=== PATIENT | female | born 1980 | race Caucasian/White ===

== ENCOUNTER 2017-02-13 10:57 | Emergency (ER) | payer BC ==
[2017-02-13 11:53] VITALS: BP 140/81
--- NOTE | 2017-02-13 12:32 | UC ---
Abdominal Pain Female HPI - HPI Summary HPI Summary: acute onset of vomiting and diarrhea that now has resolved..Hx of abscess in right groin s/p lymph node biopsy--Is concerned that this is happening now as the last time she got on abscess it started the same way....Patient does state sx have resolved now and does not feel feverish and has no pain or swelling in right groin - History of Current Complaint Chief Complaint: UCGI Stated Complaint: VOMITING Time Seen by Provider: 02/13/17 12:11 Hx Obtained From: Patient ?: No Onset/Duration: Sudden Onset, Lasting Days - 1, Resolved Severity Initially: Moderate Severity Currently: None Location: Diffuse Radiates: No Character: Cramping Aggravating Factor(s): Nothing Alleviating Factor(s): Nothing Associated Signs and Symptoms: Positive: Nausea, Vomiting, Diarrhea Allergies/Adverse Reactions: Allergies Allergy/AdvReac Type Severity Reaction Status Date / Time Acetaminophen [From Vicodin] Allergy Rash Verified 02/13/17 11:54 Cephalexin [From Keflex] Allergy Rash Verified 02/13/17 11:54 Hydrocodone [From Vicodin] Allergy Rash Verified 02/13/17 11:54 Vancomycin Allergy Rash Verified 02/13/17 11:54 Home Medications: Home Medications Sulfamethox/Trimethoprim DS* [Bactrim DS 800/160 TAB*] 800 mg PO DAILY 02/13/17 [History Confirmed 02/13/17] PMH/Surg Hx/FS Hx/Imm Hx Previously Healthy: No Cancer History: Other Other Cancer History: melanoma - Surgical History Surgical History: Yes Surgery Procedure, Year, and Place: "Many" - Family History Known Family History: Positive: None - Social History Occupation: Employed Full-time Lives: With Family Alcohol Use: None Substance Use Type: None Smoking Status (MU): Never Smoked Tobacco Review of Systems Constitutional: Negative Skin: Negative Eyes: Negative ENT: Negative Respiratory: Negative Cardiovascular: Negative Gastrointestinal: Abdominal Pain, Vomiting, Diarrhea Genitourinary: Negative Motor: Negative Neurovascular: Negative Musculoskeletal: Negative Neurological: Negative Psychological: Negative All Other Systems Reviewed And Are Negative: Yes Physical Exam Triage Information Reviewed: Yes Appearance: Well-Appearing, No Pain Distress, Obese Vital Signs: Initial Vital Signs Temp 98.0 F 02/13/17 11:49 Pulse 86 02/13/17 11:49 Resp 18 02/13/17 11:49 BP 140/81 02/13/17 11:49 Pulse Ox 99 02/13/17 11:49 Vital Signs Reviewed: Yes Eye Exam: Normal Eyes: Positive: Conjunctiva Clear ENT Exam: Normal ENT: Positive: Normal ENT inspection, Hearing grossly normal, Pharynx normal, TMs normal. Negative: Nasal congestion, Nasal drainage, Trismus, Muffled/ hoarse voice Dental Exam: Normal Neck exam: Normal Neck: Positive: Supple, Nontender, No Lymphadenopathy Respiratory Exam: Normal Respiratory: Positive: Chest non-tender, Lungs clear, Normal breath sounds, No respiratory distress, No accessory muscle use Cardiovascular Exam: Normal Cardiovascular: Positive: RRR, No Murmur, Pulses Normal, Brisk Capillary Refill Abdominal Exam: Normal Abdomen Description: Positive: No Organomegaly, Soft, Other: - mild diffuse discomfort Musculoskeletal Exam: Normal Musculoskeletal: Positive: Strength Intact, ROM Intact, No Edema Neurological Exam: Normal Neurological: Positive: Alert, Muscle Tone Normal Psychological Exam: Normal Psychological: Positive: Normal Response To Family Skin Exam: Normal Abd Pain Female Course/Dx - Course Course Of Treatment: watchful waiting, rest clear liquids, to ed should sx fail to resolve or worsen in any way - Differential Dx/Diagnosis Differential Diagnosis: Appendicitis, Bowel Obstruction, Diverticulitis, Irritable Bowel Syndrome, , Urinary Tract Infection Provider Diagnoses: Acute nausea/vomiting/diarrhea, high bllos pressure with out dx of htn Discharge - Discharge Plan Condition: Stable Disposition: HOME Patient Education Materials: Clear Liquid Diet (ED), Acute Nausea and Vomiting (ED), Abdominal Pain (ED) Referrals: [facility] [Outside] - 3 Days Additional Instructions: We do have some worry with the right lower quadrant pain. Take it easy only clear liquids and advance diet slowly, should symptoms worsen or fail to improve go directly to the emergency department
== END 2017-02-13 13:13 | disposition home or self-care (01) ==
LOC: UCEAST 10:57
DX: R11.2 Nausea with vomiting, unspecified (principal); R19.7 Diarrhea, unspecified; Z32.02 Encounter for pregnancy test, result negative; R03.0 Elevated blood-pressure reading, without diagnosis of hypertension; E66.9 Obesity, unspecified; Z88.3 Allergy status to other anti-infective agents; Z88.5 Allergy status to narcotic agent; Z88.6 Allergy status to analgesic agent; Z85.820 Personal history of malignant melanoma of skin
CPT/HCPCS: 81003; 84702; 99211; G0463

== ENCOUNTER 2017-08-18 16:52 | Emergency (ER) | payer BC ==
[2017-08-18 19:05] VITALS: BP 115/72
[2017-08-18] MEDS ORDERED: Bupivacaine 0.25% MDV* 50 ML VIAL INJ ONE (19:16)
--- NOTE | 2017-08-18 19:23 | UC ---
Skin Complaint HPI - HPI Summary HPI Summary: 37 yo WF c/o left thumb pain x 2 weeks after the cellphon glass protector shattered leaving a shard in her left thumb , volar surface, hurts to apply pressure on it. Denies d/c - History of Current Complaint Chief Complaint: UCSkin Time Seen by Provider: 08/18/17 19:14 Stated Complaint: SKIN COMPLAINT Hx Obtained From: Patient Hx Last Menstrual Period: 07/29/2017 Onset/Duration: Lasting Weeks Skin Exposure Onset/Duration: Days Ago Onset Severity: Moderate Pain Intensity: 0 - Allergy/Home Medications Allergies/Adverse Reactions: Allergies Allergy/AdvReac Type Severity Reaction Status Date / Time adhesive Allergy Rash Verified 08/18/17 19:06 MS Cephalexin [Cephalexin] Allergy Shortness Verified 05/05/17 13:38 of Breath MS Hydrocodone [Hydrocodone] Allergy Shortness Verified 05/05/17 13:38 of Breath MS Vancomycin [Vancomycin] Allergy See Comment Verified 05/05/17 13:33 Review of Systems Constitutional: Negative Skin: Other - SEE HPI Eyes: Negative ENT: Negative Respiratory: Negative Cardiovascular: Negative Gastrointestinal: Negative Genitourinary: Negative Motor: Negative Neurovascular: Negative Musculoskeletal: Negative Neurological: Negative Psychological: Negative Is Patient Immunocompromised?: No All Other Systems Reviewed And Are Negative: Yes PMH/Surg Hx/FS Hx/Imm Hx - Additional Past Medical History Additional PMH: NONE - Surgical History Surgical History: Yes Surgery Procedure, Year, and Place: LYMPH NODES DISSEECTED IN GROIN - Family History Known Family History: Positive: None - Social History Alcohol Use: None Substance Use Type: None Smoking Status (MU): Never Smoked Tobacco Physical Exam Triage Information Reviewed: Yes Appearance: No Pain Distress Vital Signs: Initial Vital Signs Temp 36.6 C 08/18/17 18:58 Pulse 72 08/18/17 18:58 Resp 16 08/18/17 18:58 BP 115/72 08/18/17 18:58 Pulse Ox 97 08/18/17 18:58 Eye Exam: Normal ENT Exam: Normal Dental Exam: Normal Neck exam: Normal Neck: Positive: 1 Respiratory Exam: Normal Cardiovascular Exam: Normal Abdominal Exam: Normal Musculoskeletal Exam: Normal Neurological Exam: Normal Psychological Exam: Normal Skin: Positive: significant lesion(s) - 3x4mm erythematous skin nodule palpated on left volar surface of the thumb, TTP, NO d/c Course/Dx - Course Course Of Treatment: FB (small broken glass shard removed under local anesthesia (marcaine) and manual exploration with a 19G needle with successful removal of small FB - Differential Diagnoses - Skin Complaint Differential Diagnoses: Foreign Body, Other - Diagnoses Provider Diagnoses: Foreign body in left thumb. Cutaneous skin infection Discharge - Discharge Plan Condition: Stable Disposition: HOME Patient Education Materials: Soft Tissue Foreign Body (ED), Acute Wound Care ( ED) Referrals: No Primary Care Phys,NOPCP [Primary Care Provider] - Additional Instructions: activity as tolerated
[2017-08-18] MEDS ORDERED: Bupivacaine 0.25% SDV* 30 ML INJ ONE (19:48)
[2017-08-18] MEDS ORDERED: Bupivacaine 0.25% SDV* 30 ML ONE (19:49)
== END 2017-08-18 20:20 | disposition home or self-care (01) ==
LOC: UCEAST 16:52
DX: S61.042A Puncture wound with foreign body of left thumb without damage to nail, initial encounter (principal); L08.9 Local infection of the skin and subcutaneous tissue, unspecified; X58.XXXA Exposure to other specified factors, initial encounter; Y93.9 Activity, unspecified; Y92.9 Unspecified place or not applicable; Z88.1 Allergy status to other antibiotic agents; Z88.5 Allergy status to narcotic agent; Z91.048 Other nonmedicinal substance allergy status
CPT/HCPCS: 99211; G0463

== ENCOUNTER 2017-09-15 13:39 | Emergency (ER) | payer BC ==
[2017-09-15 14:41] VITALS: BP 122/77
--- NOTE | 2017-09-15 14:44 | UC ---
Back Pain HPI - HPI Summary HPI Summary: Pt presents with mid back pain that began yesterday. She tells me that a few days ago she was doing a lot of lifting, but doesn't recall an injury. She also goes to the gym daily trying to lose weight. Yesterday her pain began and she describes it as a sharp spasm. Since that time she will move a certain way and feel that spot tighten and "take her breath away" for a second due to pain. This morning she felt well enough to go to the gym again, but this afternoon her pain returned. She has been taking ibuprofen, which does help relief her pain. Denies fever, chills, SOB, chest pain, abdominal pain, n/v/d/c, dysuria, hematuria, flank pain, or hx of kidney stone. No loss of bowel/bladder control - History of Current Complaint Chief Complaint: UCBackPain Stated Complaint: BACK PAIN Time Seen by Provider: 09/15/17 14:44 Hx Obtained From: Patient Hx Last Menstrual Period: 08/31/17 Onset/Duration: Sudden Onset Timing: Constant Severity Initially: Moderate Severity Currently: Moderate Pain Intensity: 5 Pain Scale Used: 0-10 Numeric Character: Sharp, Spasmodic Aggravating Factor(s): Movement, Lifting Alleviating Factor(s): Rest - Allergies/Home Medications Allergies/Adverse Reactions: Allergies Allergy/AdvReac Type Severity Reaction Status Date / Time acetaminophen [From Vicodin] Allergy Airway Verified 09/15/17 14:33 Obstruction adhesive Allergy Rash Verified 08/18/17 19:06 cephalexin Allergy Airway Verified 09/15/17 14:33 Obstruction hydrocodone Allergy Airway Verified 09/15/17 14:33 Obstruction vancomycin Allergy See Comment Verified 09/15/17 14:33 Home Medications: Home Medications Naproxen Sodium [Aleve] 440 mg PO Q6H PRN 09/15/17 [History Confirmed 09/15/17] PMH/Surg Hx/FS Hx/Imm Hx Previously Healthy: Yes - Surgical History Surgical History: Yes Surgery Procedure, Year, and Place: Multiple LYMPH NODES DISSECTED IN GROIN - Family History Known Family History: Positive: None - Social History Alcohol Use: Rare Substance Use Type: None Smoking Status (MU): Never Smoked Tobacco Review of Systems Constitutional: Negative Skin: Negative Respiratory: Negative Cardiovascular: Negative Gastrointestinal: Negative Genitourinary: Negative Neurovascular: Negative Musculoskeletal: Other: - Pain mid back Neurological: Negative Psychological: Negative All Other Systems Reviewed And Are Negative: Yes Physical Exam - Summary Physical Exam Summary: GENERAL: NAD. WDWN. No pain distress. SKIN: No rashes, sores, ulcers, masses, lesions. NECK: Supple. FROM. Nontender. No lymphadenopathy. CHEST: CTAB. No r/r/w. No accessory muscle use. Breathing comfortably and in no distress. CV: RRR. Without m/r/g. Pulses intact. Brisk cap refill. ABDOMEN: NTTP. No rebound or guarding. Bowel sounds present. No CVA tenderness. MSK: TTP over thoracic paraspinal muscles. Pain with flexion and extension of spine. Negative SLR b/l. Negative CINDY. Strength 5/5 B/L LEs including dorsiflexion and plantar flexion. FROM B/L LEs. No edema. NEURO: Alert. CN II-XII grossly intact. Sensations intact B/L LEs L3-S1. PSYCH: Age appropriate behavior. Triage Information Reviewed: Yes Vital Signs: Initial Vital Signs Temp 97.2 F 09/15/17 14:35 Pulse 69 09/15/17 14:35 Resp 16 09/15/17 14:35 BP 122/77 09/15/17 14:35 Pulse Ox 98 09/15/17 14:35 Back Pain Course/Dx - Course Course Of Treatment: UA with 1+ leuks, but she is asymptomatic at this time for urinary complaints. I will send her urine for culture, but I suspect her pain is due to a muscle strain/spasm. Toradol given today in clinic. Continue ibuprofen and may try flexeril at bedtime. - Differential Dx/Diagnosis Provider Diagnoses: Back strain/spasm Discharge - Discharge Plan Condition: Stable Disposition: HOME Prescriptions: Cyclobenzaprine TAB* [Flexeril 10 MG TAB*] 10 mg PO BEDTIME PRN #10 tab PRN Reason: Pain Patient Education Materials: Muscle Strain (DC), Core Strengthening Exercises ( GEN) Referrals: No Primary Care Phys,NOPCP [Primary Care Provider] - Additional Instructions: If you develop a fever, shortness of breath, chest pain, new or worsening symptoms - please call your PCP or go to the ED.
[2017-09-15] MEDS ORDERED: Ketorolac INJ* 30 MG/ML 1 ML VIAL IM ONE (15:13)
--- NOTE | 2017-09-18 15:19 | UC ---
- Progress Note Progress Note: final urine culture negative no change Jerilyn 09/18/2017
== END 2017-09-15 15:39 | disposition home or self-care (01) ==
LOC: UCEAST 13:39
DX: S29.012A Strain of muscle and tendon of back wall of thorax, initial encounter (principal); X58.XXXA Exposure to other specified factors, initial encounter; Y93.9 Activity, unspecified; Y92.9 Unspecified place or not applicable; M62.830 Muscle spasm of back; Z88.6 Allergy status to analgesic agent; Z88.1 Allergy status to other antibiotic agents; Z88.5 Allergy status to narcotic agent; Z91.048 Other nonmedicinal substance allergy status
CPT/HCPCS: 81003; 87086; 96372; 99212; G0463; J1885